=== PATIENT | male | born 1950 | race African-American/Black ===

== ENCOUNTER 2019-03-15 13:06 | Inpatient (IN) | payer OTHER ==
[~2019-03-15] VITALS: Ht 175.3 cm; Wt 60.3 kg
[~2019-03-15 13:06] MED LIST: AMLO10TA4 PO; ATOR-2 PO; CLOP75TA4 PO; GLYB5TAB7 PO; METF-416 PO; SITA100T11 PO
[2019-03-15] MEDS ORDERED: SODIUM CHLORIDE 0.9% 1,000 ML IV ONE ×2 (13:49→16:50)
[2019-03-15 14:31] LABS: BASOPHILS % 0.4 % (0.0-2.0); EOSINOPHILS % 0.6 % (0.0-5.0); HEMATOCRIT. 26.6 % (42.0-52.0); HEMOGLOBIN. 9.2 g/dL (14.0-18.0); LYMPHOCYTES % 17.2 % (20.0-50.0); MEAN CORPUSCULAR HEMOGLOBIN 34.7 pg (28.0-32.0); MEAN CORPUSCULAR VOLUME 100.1 fL (80.0-94.0); MONOCYTES % 7.8 % (2.0-8.0); PLATELET 251 x1000/uL (130-400); RED BLOOD CELL COUNT 2.66 mill/uL (4.7-6.1); RED CELL DISTRIBUTION WIDTH 14.6 % (11.6-14.6)
[2019-03-15 14:40] LABS: CHLORIDE 110 mEq/L (98-107)
[2019-03-15 14:43] LABS: INR 1.1; PARTIAL THROMBOPLASTIN TIME 27.7 sec (23.4-31.0); PROTHROMBIN TIME 10.9 sec (9.6-11.0)
[2019-03-15] MEDS ORDERED: HYDRALAZINE 20MG/ML VIAL IV ONE ×2 (16:00→18:30)
[2019-03-15] MEDS ORDERED: ASPIRIN 325MG EC TABLET PO ONE (18:30)
[2019-03-15 18:44] LABS: CLARITY URINE CLEAR (CLEAR); COLOR URINE YELLOW (YELLOW); KETONES URINE NEGATIVE (NEGATIVE); LEUKOCYTE ESTERASE URINE NEGATIVE (NEGATIVE); NITRITE URINE NEGATIVE (NEGATIVE); OCCULT BLOOD URINE NEGATIVE (NEGATIVE); PROTEIN URINE TRACE (NEGATIVE); SPECIFIC GRAVITY URINE 1.023 (1.005-1.030); UROBILINOGEN URINE 0.2 E.U./dL (0.2-1.0)
[2019-03-15] MEDS: MORPHINE SULFATE 4 MG/ML CPJ (NOT FOR IM USE) IV PRN (21:35)
[2019-03-15] MEDS ORDERED: ONDANSETRON HCL 4MG/2ML INJ IV PRN (22:00)
[2019-03-15] MEDS ORDERED: ACETAMINOPHEN 325MG TABLET PO PRN (22:00)
[2019-03-15] MEDS ORDERED: MAGNESIUM/ALUMINUM HYDROXIDE/SIMETHICONE 30ML UDC PO PRN (22:00)
[2019-03-15] MEDS ORDERED: DOCUSATE SODIUM 100MG CAPSULE PO PRN (22:00)
[2019-03-15] MEDS ORDERED: IOHEXOL-350 100 ML BOTTLE ONE (22:55)
[2019-03-15] MEDS: HYDROCODONE/ACETAMINOPHEN 5/325MG TABLET PO PRN (23:58)
[2019-03-16] MEDS: MORPHINE SULFATE 4 MG/ML CPJ (NOT FOR IM USE) IV PRN (01:22)
[2019-03-16 04:00] VITALS: BP 186/78
[2019-03-16 04:42] VITALS: BP 186/95
[2019-03-16] MEDS ORDERED: IRBE300T17 MT (05:05)
[2019-03-16] MEDS ORDERED: RANO500T3 MT (05:06)
[2019-03-16] MEDS ORDERED: IBUP-2030 MT (05:07)
[2019-03-16] MEDS: HYDROCODONE/ACETAMINOPHEN 5/325MG TABLET PO PRN (05:17)
[2019-03-16] MEDS: CLONIDINE 0.1MG TABLET PO PRN ×2 (05:18→17:20)
[2019-03-16] MEDS ORDERED: DEXTROSE 50% WATER 50ML SYRINGE IV PRN (05:30)
[2019-03-16] MEDS: BLOOD SUGAR DIAGNOSTIC STRIP TEST SCH ×4 (06:15→20:11)
[2019-03-16] MEDS: INSULIN LISPRO 100 UNITS/ML SUBCUT SCH ×4 (06:27→20:30)
[2019-03-16 08:00] VITALS: BP 161/75
[2019-03-16 09:37] LABS: BASOPHILS % 0.4 % (0.0-2.0); EOSINOPHILS % 0.1 % (0.0-5.0); HEMATOCRIT. 30.8 % (42.0-52.0); HEMOGLOBIN. 10.3 g/dL (14.0-18.0); LYMPHOCYTES % 8.4 % (20.0-50.0); MEAN CORPUSCULAR HEMOGLOBIN 33.9 pg (28.0-32.0); MEAN CORPUSCULAR VOLUME 101.5 fL (80.0-94.0); MEAN PLATELET VOLUME 7.9 fl (7.4-10.4); MONOCYTES % 6.2 % (2.0-8.0); NEUTROPHILS % 84.9 % (40.0-76.0); PLATELET 260 x1000/uL (130-400); RED BLOOD CELL COUNT 3.03 mill/uL (4.7-6.1)
[2019-03-16 10:31] LABS: CHLORIDE 112 mEq/L (98-107)
[2019-03-16 10:42] LABS: LDL CHOLESTEROL 105 mg/dL (5-100)
[2019-03-16 10:46] LABS: HDL CHOLESTEROL 67 mg/dL (40-59)
[2019-03-16 12:00] VITALS: BP 160/66
[2019-03-16] MEDS: DEXAMETHASONE 4MG/ML 1ML VIAL IV SCH ×2 (12:26→17:20)
[2019-03-16 13:00] LABS: T4 FREE 1.16 ng/dL (0.76-1.46)
[2019-03-16 16:00] VITALS: BP 170/81
[2019-03-16 20:00] VITALS: BP 130/71
[2019-03-16] MEDS ORDERED: POTASSIUM CHLORIDE 20MEQ TABLET SR PO SCH (20:00)
[2019-03-16] MEDS: ATORVASTATIN CALCIUM 40MG TABLET PO SCH (20:22)
[2019-03-16] MEDS ORDERED: DEXT 5%/LACTATED RINGERS 1,000 ML IV SCH (20:30)
[2019-03-16] MEDS ORDERED: ATORVASTATIN CALCIUM 40MG TABLET PO SCH (21:00)
[2019-03-17] VITALS: BP 150/66
[2019-03-17] MEDS: DEXAMETHASONE 4MG/ML 1ML VIAL IV SCH ×4 (00:12→17:44)
[2019-03-17 04:00] VITALS: BP 166/62
[2019-03-17] MEDS: CLONIDINE 0.1MG TABLET PO PRN (05:34)
[2019-03-17] MEDS: BLOOD SUGAR DIAGNOSTIC STRIP TEST SCH ×4 (06:23→20:15)
[2019-03-17] MEDS: INSULIN LISPRO 100 UNITS/ML SUBCUT SCH ×4 (06:27→20:49)
[2019-03-17] MEDS: HYDROCODONE/ACETAMINOPHEN 5/325MG TABLET PO PRN (06:27)
[2019-03-17 08:00] VITALS: BP 162/61
[2019-03-17 12:00] VITALS: BP 116/69
[2019-03-17] MEDS: ASPIRIN 81MG TABLET PO SCH (12:02)
[2019-03-17] MEDS: HYDRALAZINE HCL 25MG TABLET PO SCH ×2 (12:02→20:14)
[2019-03-17] MEDS: MORPHINE SULFATE 4 MG/ML CPJ (NOT FOR IM USE) IV PRN ×2 (12:30→20:15)
[2019-03-17] MEDS: SODIUM CHLORIDE 0.9% 1,000 ML IV SCH ×2 (12:31→21:07)
[2019-03-17 16:00] VITALS: BP 152/61
[2019-03-17 20:00] VITALS: BP 157/73
[2019-03-17] MEDS: ATORVASTATIN CALCIUM 40MG TABLET PO SCH (20:16)
[2019-03-18] VITALS: BP 156/66
[2019-03-18 00:35] LABS: CREATINE KINASE MB FRACTION 1.6 ng/mL (0.5-3.6)
[2019-03-18] MEDS: DEXAMETHASONE 4MG/ML 1ML VIAL IV SCH ×5 (00:57→19:46)
[2019-03-18 04:00] VITALS: BP 166/70
[2019-03-18] MEDS: BLOOD SUGAR DIAGNOSTIC STRIP TEST SCH ×2 (06:41→21:29)
[2019-03-18] MEDS: INSULIN LISPRO 100 UNITS/ML SUBCUT SCH ×4 (06:47→21:40)
[2019-03-18 08:00] VITALS: BP 162/65
[2019-03-18 08:58] LABS: CREATINE KINASE MB FRACTION 1.4 ng/mL (0.5-3.6)
[2019-03-18] MEDS: CLOPIDOGREL 75MG TABLET PO SCH (09:49)
[2019-03-18] MEDS: ASPIRIN 81MG TABLET PO SCH (09:49)
[2019-03-18] MEDS: HYDRALAZINE HCL 25MG TABLET PO SCH ×2 (10:13→21:32)
[2019-03-18] MEDS: MORPHINE SULFATE 4 MG/ML CPJ (NOT FOR IM USE) IV PRN ×2 (10:15→23:14)
[2019-03-18 12:00] VITALS: BP 163/65
[2019-03-18] MEDS: SODIUM CHLORIDE 0.9% 1,000 ML IV SCH (14:40)
[2019-03-18 16:00] VITALS: BP 154/59
[2019-03-18 20:00] VITALS: BP 151/60
[2019-03-18] MEDS: ATORVASTATIN CALCIUM 40MG TABLET PO SCH (21:29)
[2019-03-19] VITALS: BP 151/63
[2019-03-19] MEDS: SODIUM CHLORIDE 0.9% 1,000 ML IV SCH ×2 (00:59→17:26)
[2019-03-19] MEDS: DEXAMETHASONE 4MG/ML 1ML VIAL IV SCH ×6 (00:59→23:15)
[2019-03-19 04:00] VITALS: BP 163/71
[2019-03-19] MEDS: CLONIDINE 0.1MG TABLET PO PRN ×2 (05:14→13:58)
[2019-03-19] MEDS: BLOOD SUGAR DIAGNOSTIC STRIP TEST SCH ×4 (06:18→20:38)
[2019-03-19] MEDS: INSULIN LISPRO 100 UNITS/ML SUBCUT SCH ×4 (06:24→21:14)
[2019-03-19 06:44] LABS: CHLORIDE 112 mEq/L (98-107)
[2019-03-19 06:54] LABS: BASOPHILS % 0.1 % (0.0-2.0); HEMATOCRIT. 22.7 % (42.0-52.0); HEMOGLOBIN. 7.9 g/dL (14.0-18.0); LYMPHOCYTES % 12.4 % (20.0-50.0); MEAN CORPUSCULAR HEMOGLOBIN 34.8 pg (28.0-32.0); MEAN CORPUSCULAR VOLUME 100.5 fL (80.0-94.0); MEAN PLATELET VOLUME 8.7 fl (7.4-10.4); MONOCYTES % 7.5 % (2.0-8.0); PLATELET 196 x1000/uL (130-400); RED BLOOD CELL COUNT 2.26 mill/uL (4.7-6.1); RED CELL DISTRIBUTION WIDTH 14.2 % (11.6-14.6)
[2019-03-19 08:00] VITALS: BP 140/62
[2019-03-19] MEDS: ASPIRIN 81MG TABLET PO SCH (09:39)
[2019-03-19] MEDS: CLOPIDOGREL 75MG TABLET PO SCH (09:39)
[2019-03-19] MEDS: HYDRALAZINE HCL 25MG TABLET PO SCH ×3 (09:39→21:13)
[2019-03-19] MEDS: MORPHINE SULFATE 4 MG/ML CPJ (NOT FOR IM USE) IV PRN ×2 (10:57→17:54)
[2019-03-19 12:00] VITALS: BP 163/63
[2019-03-19 16:00] VITALS: BP 165/65
[2019-03-19 20:00] VITALS: BP 151/59
[2019-03-19] MEDS: ATORVASTATIN CALCIUM 40MG TABLET PO SCH (20:32)
[2019-03-20] VITALS: BP 134/53
[2019-03-20] MEDS: MORPHINE SULFATE 4 MG/ML CPJ (NOT FOR IM USE) IV PRN (02:46)
[2019-03-20] MEDS: SODIUM CHLORIDE 0.9% 1,000 ML IV SCH ×2 (03:25→05:38)
[2019-03-20 04:00] VITALS: BP 155/66
[2019-03-20] MEDS: HYDRALAZINE HCL 25MG TABLET PO SCH ×4 (05:31→21:31)
[2019-03-20] MEDS: DEXAMETHASONE 4MG/ML 1ML VIAL IV SCH ×3 (05:31→18:00)
[2019-03-20] MEDS: BLOOD SUGAR DIAGNOSTIC STRIP TEST SCH ×4 (05:52→21:32)
[2019-03-20] MEDS: INSULIN LISPRO 100 UNITS/ML SUBCUT SCH ×4 (05:57→21:31)
[2019-03-20 08:00] VITALS: BP 171/78
[2019-03-20] MEDS: ASPIRIN 81MG TABLET PO SCH (10:05)
[2019-03-20] MEDS: CLOPIDOGREL 75MG TABLET PO SCH (10:05)
[2019-03-20 12:00] VITALS: BP 161/72
[2019-03-20] MEDS: CLONIDINE 0.1MG TABLET PO PRN (12:32)
[2019-03-20 16:00] VITALS: BP 153/64
[2019-03-20 19:05] LABS: BASOPHILS % 0.2 % (0.0-2.0); HEMATOCRIT. 27.1 % (42.0-52.0); HEMOGLOBIN. 9.1 g/dL (14.0-18.0); LYMPHOCYTES % 8.2 % (20.0-50.0); MEAN CORPUSCULAR HEMOGLOBIN 33.9 pg (28.0-32.0); MEAN CORPUSCULAR VOLUME 101.2 fL (80.0-94.0); MEAN PLATELET VOLUME 8.7 fl (7.4-10.4); MONOCYTES % 6.6 % (2.0-8.0); PLATELET 211 x1000/uL (130-400); RED BLOOD CELL COUNT 2.67 mill/uL (4.7-6.1)
[2019-03-20 20:00] VITALS: BP 143/83
[2019-03-20] MEDS: ATORVASTATIN CALCIUM 40MG TABLET PO SCH (21:30)
[2019-03-20] MEDS: HYDROCODONE/ACETAMINOPHEN 5/325MG TABLET PO PRN (21:31)
[2019-03-21] VITALS: BP 161/62
[2019-03-21] MEDS: DEXAMETHASONE 4MG/ML 1ML VIAL IV SCH ×4 (00:01→17:31)
[2019-03-21 04:00] VITALS: BP 161/63
[2019-03-21] MEDS ORDERED: MORPHINE SULFATE 4 MG/ML CPJ (NOT FOR IM USE) IV PRN (04:00)
[2019-03-21] MEDS: SODIUM CHLORIDE 0.9% 1,000 ML IV SCH ×2 (06:21→18:43)
[2019-03-21] MEDS: BLOOD SUGAR DIAGNOSTIC STRIP TEST SCH ×4 (06:22→20:06)
[2019-03-21] MEDS: HYDRALAZINE HCL 25MG TABLET PO SCH ×2 (06:22→13:44)
[2019-03-21] MEDS: INSULIN LISPRO 100 UNITS/ML SUBCUT SCH ×4 (06:43→20:21)
[2019-03-21 08:00] VITALS: BP 154/52
[2019-03-21] MEDS: CLOPIDOGREL 75MG TABLET PO SCH (08:51)
[2019-03-21] MEDS: ASPIRIN 81MG TABLET PO SCH (08:51)
[2019-03-21 12:00] VITALS: BP 151/57
[2019-03-21 16:00] VITALS: BP 139/51
[2019-03-21 20:00] VITALS: BP 145/54
[2019-03-21] MEDS: ATORVASTATIN CALCIUM 40MG TABLET PO SCH (20:15)
[2019-03-21] MEDS: HYDROCODONE/ACETAMINOPHEN 5/325MG TABLET PO PRN (20:20)
[2019-03-21] MEDS ORDERED: FAMOTIDINE 20MG TABLET PO SCH (21:00)
[2019-03-21] MEDS: FAMOTIDINE 20MG TABLET PO SCH (21:00)
[2019-03-22] VITALS: BP 157/58
[2019-03-22] MEDS: HYDRALAZINE HCL 25MG TABLET PO SCH ×4 (00:16→23:03)
[2019-03-22] MEDS: HYDROCODONE/ACETAMINOPHEN 5/325MG TABLET PO PRN ×3 (00:17→20:29)
[2019-03-22] MEDS: DEXAMETHASONE 4MG/ML 1ML VIAL IV SCH ×5 (00:19→23:49)
[2019-03-22 04:00] VITALS: BP 130/91
[2019-03-22] MEDS: BLOOD SUGAR DIAGNOSTIC STRIP TEST SCH ×4 (06:26→20:41)
[2019-03-22] MEDS: INSULIN LISPRO 100 UNITS/ML SUBCUT SCH ×4 (06:50→20:51)
[2019-03-22 08:00] VITALS: BP 121/56
[2019-03-22] MEDS: CLOPIDOGREL 75MG TABLET PO SCH (09:40)
[2019-03-22] MEDS: FAMOTIDINE 20MG TABLET PO SCH (09:41)
[2019-03-22] MEDS: ASPIRIN 81MG TABLET PO SCH (09:41)
[2019-03-22 12:00] VITALS: BP 181/76
[2019-03-22] MEDS: CLONIDINE 0.1MG TABLET PO PRN (13:09)
[2019-03-22 16:00] VITALS: BP 126/50
[2019-03-22 20:00] VITALS: BP 140/53
[2019-03-22] MEDS: ATORVASTATIN CALCIUM 40MG TABLET PO SCH (20:28)
[2019-03-23] VITALS (8 sets, daily range): BP systolic 104–168; BP diastolic 48–62
[2019-03-23] MEDS: DEXAMETHASONE 4MG/ML 1ML VIAL IV SCH (06:00)
[2019-03-23] MEDS: BLOOD SUGAR DIAGNOSTIC STRIP TEST SCH ×4 (06:53→20:16)
[2019-03-23] MEDS: HYDRALAZINE HCL 25MG TABLET PO SCH ×3 (06:54→21:17)
[2019-03-23] MEDS: INSULIN LISPRO 100 UNITS/ML SUBCUT SCH ×4 (06:57→20:58)
[2019-03-23] MEDS: FAMOTIDINE 20MG TABLET PO SCH (08:48)
[2019-03-23] MEDS: ASPIRIN 81MG TABLET PO SCH (08:48)
[2019-03-23] MEDS: CLOPIDOGREL 75MG TABLET PO SCH (08:48)
[2019-03-23] MEDS: HYDROCODONE/ACETAMINOPHEN 5/325MG TABLET PO PRN ×2 (12:19→23:35)
[2019-03-23] MEDS: DEXAMETHASONE 4MG TABLET PO SCH ×3 (12:38→23:29)
[2019-03-23] MEDS: CLONIDINE 0.1MG TABLET PO PRN (12:38)
[2019-03-23] MEDS: ATORVASTATIN CALCIUM 40MG TABLET PO SCH (20:52)
[2019-03-24] VITALS: BP 128/57
[2019-03-24 04:00] VITALS: BP 179/80
[2019-03-24 04:51] VITALS: BP 165/75
[2019-03-24] MEDS: DEXAMETHASONE 4MG TABLET PO SCH ×3 (05:13→17:18)
[2019-03-24] MEDS: HYDRALAZINE HCL 25MG TABLET PO SCH ×2 (05:13→13:51)
[2019-03-24] MEDS: BLOOD SUGAR DIAGNOSTIC STRIP TEST SCH ×4 (05:57→19:59)
[2019-03-24] MEDS: INSULIN LISPRO 100 UNITS/ML SUBCUT SCH ×4 (06:22→21:33)
[2019-03-24 06:35] VITALS: BP 158/67
[2019-03-24] MEDS: HYDROCODONE/ACETAMINOPHEN 5/325MG TABLET PO PRN (09:49)
[2019-03-24] MEDS: FAMOTIDINE 20MG TABLET PO SCH (09:50)
[2019-03-24] MEDS: CLOPIDOGREL 75MG TABLET PO SCH (09:50)
[2019-03-24] MEDS: ASPIRIN 81MG TABLET PO SCH (09:50)
[2019-03-24 16:00] VITALS: BP 130/60
[2019-03-24 20:00] VITALS: BP 141/46
[2019-03-24] MEDS ORDERED: DIPHENHYDRAMINE 25MG CAPSULE PO PRN (21:15)
[2019-03-24] MEDS ORDERED: DIPHENHYDRAMINE 50MG/ML VIAL IV PRN (21:15)
[2019-03-24] MEDS: ATORVASTATIN CALCIUM 40MG TABLET PO SCH (21:32)
[2019-03-25] VITALS (8 sets, daily range): BP systolic 131–182; BP diastolic 52–67
[2019-03-25] MEDS: HYDRALAZINE HCL 25MG TABLET PO SCH ×4 (01:09→21:43)
[2019-03-25] MEDS: DEXAMETHASONE 4MG TABLET PO SCH ×5 (01:09→23:41)
[2019-03-25] MEDS: BLOOD SUGAR DIAGNOSTIC STRIP TEST SCH ×4 (06:07→20:17)
[2019-03-25] MEDS: INSULIN LISPRO 100 UNITS/ML SUBCUT SCH ×4 (06:50→21:22)
[2019-03-25] MEDS: CLOPIDOGREL 75MG TABLET PO SCH (09:43)
[2019-03-25] MEDS: ASPIRIN 81MG TABLET PO SCH (09:45)
[2019-03-25] MEDS: CLONIDINE 0.1MG TABLET PO PRN (09:45)
[2019-03-25] MEDS: FAMOTIDINE 20MG TABLET PO SCH (09:45)
[2019-03-25] MEDS: AMLODIPINE 5MG TABLET PO SCH ×2 (11:24→20:14)
[2019-03-25] MEDS: ATORVASTATIN CALCIUM 40MG TABLET PO SCH (20:14)
[2019-03-26] VITALS: BP 137/55
[2019-03-26 04:00] VITALS: BP 161/62
[2019-03-26] MEDS: CLONIDINE 0.1MG TABLET PO PRN (04:07)
[2019-03-26] MEDS: HYDRALAZINE HCL 25MG TABLET PO SCH ×3 (05:51→21:13)
[2019-03-26] MEDS: DEXAMETHASONE 4MG TABLET PO SCH ×3 (05:51→17:11)
[2019-03-26] MEDS: BLOOD SUGAR DIAGNOSTIC STRIP TEST SCH ×4 (07:36→20:11)
[2019-03-26 08:00] VITALS: BP 142/46
[2019-03-26] MEDS: FAMOTIDINE 20MG TABLET PO SCH (08:38)
[2019-03-26] MEDS: ASPIRIN 81MG TABLET PO SCH (08:38)
[2019-03-26] MEDS: CLOPIDOGREL 75MG TABLET PO SCH (08:38)
[2019-03-26] MEDS: AMLODIPINE 5MG TABLET PO SCH ×2 (08:39→20:05)
[2019-03-26] MEDS: INSULIN LISPRO 100 UNITS/ML SUBCUT SCH ×4 (08:42→21:15)
[2019-03-26 12:00] VITALS: BP 137/57
[2019-03-26] MEDS: HYDROCODONE/ACETAMINOPHEN 5/325MG TABLET PO PRN (13:16)
[2019-03-26] MEDS ORDERED: INSULIN GLARGINE UD 100 UNITS/ML SYR SUBCUT SCH (14:00)
[2019-03-26 16:00] VITALS: BP 104/62
[2019-03-26 20:00] VITALS: BP 126/56
[2019-03-26] MEDS: ATORVASTATIN CALCIUM 40MG TABLET PO SCH (20:05)
[2019-03-27] VITALS: BP 145/62
[2019-03-27] MEDS: DEXAMETHASONE 4MG TABLET PO SCH ×4 (00:05→17:53)
[2019-03-27 04:00] VITALS: BP 165/72
[2019-03-27] MEDS: HYDRALAZINE HCL 25MG TABLET PO SCH ×2 (05:30→13:47)
[2019-03-27] MEDS: BLOOD SUGAR DIAGNOSTIC STRIP TEST SCH ×3 (07:36→17:20)
[2019-03-27 08:00] VITALS: BP 152/48
[2019-03-27] MEDS: ASPIRIN 81MG TABLET PO SCH (09:07)
[2019-03-27] MEDS: AMLODIPINE 5MG TABLET PO SCH (09:07)
[2019-03-27] MEDS: CLOPIDOGREL 75MG TABLET PO SCH (09:07)
[2019-03-27] MEDS: FAMOTIDINE 20MG TABLET PO SCH (09:07)
[2019-03-27] MEDS: INSULIN LISPRO 100 UNITS/ML SUBCUT SCH ×3 (09:13→18:54)
[2019-03-27] MEDS ORDERED: INSULIN GLARGINE UD 100 UNITS/ML SYR SUBCUT SCH (10:00)
[2019-03-27] MEDS ORDERED: HYDROCODONE/ACETAMINOPHEN 5/325MG TABLET PO PRN (10:15)
[2019-03-27 12:00] VITALS: BP 157/56
[2019-03-27 12:24] LABS: HEMATOCRIT. 29.8 % (42.0-52.0); HEMOGLOBIN. 10.2 g/dL (14.0-18.0); MEAN CORPUSCULAR HEMOGLOBIN 35.1 pg (28.0-32.0); MEAN CORPUSCULAR VOLUME 102.1 fL (80.0-94.0); MEAN PLATELET VOLUME 8.1 fl (7.4-10.4); PLATELET 318 x1000/uL (130-400); RED BLOOD CELL COUNT 2.91 mill/uL (4.7-6.1); RED CELL DISTRIBUTION WIDTH 14.7 % (11.6-14.6)
[2019-03-27 14:30] LABS: PLATELET ESTIMATE NORMAL
[2019-03-27 15:55] VITALS: BP 138/53
[2019-03-27 17:10] VITALS: BP 138/53
[2019-03-27] MEDS ORDERED: SODIUM POLYSTYRENE SULFONATE 15 G/60 ML BOT PO NR (18:00)
== END 2019-03-27 19:05 | DRG 280 ==
LOC: ER 13:06 → 5WST 18:25 → ENRESERV 03-16 03:02 → 6EST 03-25 11:41
PROVIDERS: ADMIT Hospitalist; ATTEND Hospitalist
DX: I21.3 ST elevation (STEMI) myocardial infarction of unspecified site (principal); G93.41 Metabolic encephalopathy; G82.20 Paraplegia, unspecified; C79.49 Secondary malignant neoplasm of other parts of nervous system; I45.2 Bifascicular block; G95.20 Unspecified cord compression; E46 Unspecified protein-calorie malnutrition; Z68.1 Body mass index [BMI] 19.9 or less, adult; I24.9 Acute ischemic heart disease, unspecified; D64.9 Anemia, unspecified; E04.2 Nontoxic multinodular goiter; E11.22 Type 2 diabetes mellitus with diabetic chronic kidney disease; E78.5 Hyperlipidemia, unspecified; Z96.649 Presence of unspecified artificial hip joint; I13.10 Hypertensive heart and chronic kidney disease without heart failure, with stage 1 through stage 4 chronic kidney disease, or unspecified chronic kidney disease; M48.04 Spinal stenosis, thoracic region; L89.159 Pressure ulcer of sacral region, unspecified stage; R32 Unspecified urinary incontinence; I25.10 Atherosclerotic heart disease of native coronary artery without angina pectoris; N18.9 Chronic kidney disease, unspecified; Z85.038 Personal history of other malignant neoplasm of large intestine; Z85.46 Personal history of malignant neoplasm of prostate; Z95.1 Presence of aortocoronary bypass graft; Z88.2 Allergy status to sulfonamides; Z79.84 Long term (current) use of oral hypoglycemic drugs; Z79.899 Other long term (current) drug therapy
CPT/HCPCS: 36415; 71045; 71275; 72141; 72146; 72148; 74174; 80048; 80053; 80061; 81003; 82140; 82550; 82553; 82962; 83735; 83880; 84134; 84439; 84443; 84484; 85025; 93005; 93306; 93970; 97162; 97530; 99291; A6261; C1893; J0360; J1100; J1815; J2270; J7030; J8540; Q0163; Q9967; A4315

== ENCOUNTER 2019-03-31 10:36 | Inpatient (IN) | payer OTHER ==
[~2019-03-31] VITALS: Ht 182.9 cm; Wt 54.4 kg
[~2019-03-31 10:36] MED LIST changes: -AMLO10TA4 PO; -GLYB5TAB7 PO; +IBUP-2030 MT; +IRBE300T17 MT; -METF-416 PO; +RANO500T3 MT
[2019-03-31 12:40] LABS: HEMATOCRIT. 26.1 % (42.0-52.0); HEMOGLOBIN. 8.7 g/dL (14.0-18.0); MEAN CORPUSCULAR HEMOGLOBIN 34.4 pg (28.0-32.0); MEAN CORPUSCULAR VOLUME 102.5 fL (80.0-94.0); PLATELET 174 x1000/uL (130-400); RED BLOOD CELL COUNT 2.54 mill/uL (4.7-6.1); RED CELL DISTRIBUTION WIDTH 16.1 % (11.6-14.6)
[2019-03-31 12:43] LABS: CHLORIDE 116 mEq/L (98-107)
[2019-03-31] MEDS ORDERED: PIPERACILLIN/TAZ 2.25G PREMIX 50 ML IV ONE (13:45)
[2019-03-31] MEDS: ASPIRIN 325MG EC TABLET PO ONE ×2 (13:45→16:46)
[2019-03-31] MEDS: VANCOMYCIN 1 G PREMIX 200 ML IV SCH ×2 (14:00→16:46)
[2019-03-31 14:04] LABS: NUCLEATED RED BLOOD CELLS 1 /100 WBC
[2019-03-31 14:05] LABS: PLATELET ESTIMATE NORMAL
[2019-03-31] MEDS ORDERED: GUAIFENESIN 200MG/10ML SUGAR FREE UDC PO PRN (15:45)
[2019-03-31] MEDS ORDERED: DOCUSATE SODIUM 100MG CAPSULE PO PRN (15:45)
[2019-03-31] MEDS ORDERED: IPRATROPIUM/ALBUTEROL 0.5-3(2.5)MG/3ML NEB NEB PRN (15:45)
[2019-03-31] MEDS ORDERED: ZOLPIDEM TARTRATE 5MG TABLET PO PRN (15:45)
[2019-03-31] MEDS ORDERED: ACETAMINOPHEN 325MG TABLET PO PRN (15:45)
[2019-03-31] MEDS ORDERED: MAGNESIUM/ALUMINUM HYDROXIDE/SIMETHICONE 30ML UDC PO PRN (15:45)
[2019-03-31] MEDS ORDERED: NITROGLYCERIN 0.4MG TABLET SL SL PRN (15:45)
[2019-03-31] MEDS ORDERED: ONDANSETRON HCL 4MG/2ML INJ IV PRN (15:45)
[2019-03-31] MEDS ORDERED: DEXTROSE 50% WATER 50ML SYRINGE IV PRN (15:45)
[2019-03-31 17:45] LABS: VITAMIN B12 SERUM 1205 pg/mL (211-911)
[2019-03-31] MEDS: SODIUM CHLORIDE 0.45% 1,000 ML IV SCH (17:50)
[2019-03-31] MEDS: ENOXAPARIN 30MG/0.3ML SYR SUBCUT SCH (17:50)
[2019-03-31] MEDS: BLOOD SUGAR DIAGNOSTIC STRIP TEST SCH (17:50)
[2019-03-31 17:55] LABS: FOLIC ACID (FOLATE) SERUM > 20.00 ng/mL (>5.38)
[2019-03-31] MEDS ORDERED: DEXAMETHASONE 1MG TABLET PO NR (19:00)
[2019-03-31] MEDS: INSULIN LISPRO 100 UNITS/ML SUBCUT SCH (19:06)
[2019-03-31] MEDS ORDERED: FAMOTIDINE 20MG TABLET PO SCH (21:00)
[2019-03-31 22:00] VITALS: BP 152/53
[2019-03-31 23:00] VITALS: BP 152/53
[2019-04-01] VITALS: BP 147/52
[2019-04-01] MEDS: BLOOD SUGAR DIAGNOSTIC STRIP TEST SCH ×5 (00:47→22:08)
[2019-04-01] MEDS: ATORVASTATIN CALCIUM 40MG TABLET PO SCH ×2 (00:47→22:08)
[2019-04-01] MEDS: DEXAMETHASONE 1MG TABLET PO SCH ×4 (00:48→17:43)
[2019-04-01] MEDS: INSULIN LISPRO 100 UNITS/ML SUBCUT SCH ×5 (01:02→22:17)
[2019-04-01 03:55] LABS: CREATINE KINASE 559 IU/L (39-308); CREATINE KINASE MB FRACTION < 1.0 ng/mL (0.5-3.6)
[2019-04-01 04:00] VITALS: BP 128/49
[2019-04-01] MEDS: SODIUM CHLORIDE 0.45% 1,000 ML IV SCH ×3 (07:01→22:09)
[2019-04-01 08:00] VITALS: BP 126/82
[2019-04-01] MEDS: CLOPIDOGREL 75MG TABLET PO SCH (10:15)
[2019-04-01] MEDS: ASPIRIN 81MG EC TABLET PO SCH (10:15)
[2019-04-01] MEDS: FAMOTIDINE 20MG TABLET PO SCH (10:15)
[2019-04-01] MEDS: FOLIC ACID/VITAMIN B COMP W-C TABLET PO SCH (10:16)
[2019-04-01] MEDS: CEFTRIAXONE 1 G PREMIX 50 ML IV SCH (10:19)
[2019-04-01] MEDS ORDERED: LEVOFLOXACIN 500MG PREMIX 100 ML IV SCH (11:00)
[2019-04-01 11:16] LABS: HEMATOCRIT. 23.1 % (42.0-52.0); HEMOGLOBIN. 7.7 g/dL (14.0-18.0); MEAN CORPUSCULAR HEMOGLOBIN 33.9 pg (28.0-32.0); MEAN PLATELET VOLUME 9.6 fl (7.4-10.4); PLATELET 141 x1000/uL (130-400); RED BLOOD CELL COUNT 2.26 mill/uL (4.7-6.1); RED CELL DISTRIBUTION WIDTH 16.2 % (11.6-14.6)
[2019-04-01 11:20] LABS: PROTHROMBIN TIME 11.3 sec (9.6-11.0)
[2019-04-01 11:24] LABS: CHLORIDE 118 mEq/L (98-107)
[2019-04-01 11:34] LABS: PHOSPHORUS 5.2 mg/dL (2.5-4.9)
[2019-04-01 11:36] LABS: CREATINE KINASE 395 IU/L (39-308)
[2019-04-01 11:40] LABS: CREATINE KINASE MB FRACTION < 1.0 ng/mL (0.5-3.6)
[2019-04-01 12:00] VITALS: BP 118/78
[2019-04-01 16:00] VITALS: BP 136/60
[2019-04-01] MEDS: ENOXAPARIN 30MG/0.3ML SYR SUBCUT SCH (17:42)
[2019-04-01] MEDS: TRAMADOL 50MG TABLET PO PRN (18:37)
[2019-04-01 19:13] LABS: CLARITY URINE CLOUDY (CLEAR); COLOR URINE YELLOW (YELLOW); KETONES URINE NEGATIVE (NEGATIVE); LEUKOCYTE ESTERASE URINE 2+ (NEGATIVE); NITRITE URINE NEGATIVE (NEGATIVE); OCCULT BLOOD URINE 2+ (NEGATIVE); PROTEIN URINE 1+ (NEGATIVE); SPECIFIC GRAVITY URINE 1.014 (1.005-1.030); UROBILINOGEN URINE 0.2 E.U./dL (0.2-1.0)
[2019-04-01 20:00] VITALS: BP 130/65
[2019-04-01 23:09] LABS: PLATELET ESTIMATE NORMAL
[2019-04-02] VITALS (8 sets, daily range): BP systolic 120–165; BP diastolic 55–72
[2019-04-02] MEDS: DEXAMETHASONE 1MG TABLET PO SCH ×3 (00:23→17:22)
[2019-04-02 06:35] LABS: PHOSPHORUS 4.8 mg/dL (2.5-4.9)
[2019-04-02 06:36] LABS: HEMATOCRIT. 24.9 % (42.0-52.0); HEMOGLOBIN. 8.3 g/dL (14.0-18.0); MEAN CORPUSCULAR HEMOGLOBIN 34.2 pg (28.0-32.0); MEAN CORPUSCULAR VOLUME 102.5 fL (80.0-94.0); MEAN PLATELET VOLUME 9.6 fl (7.4-10.4); PLATELET 136 x1000/uL (130-400); RED BLOOD CELL COUNT 2.43 mill/uL (4.7-6.1); RED CELL DISTRIBUTION WIDTH 16.3 % (11.6-14.6)
[2019-04-02] MEDS: BLOOD SUGAR DIAGNOSTIC STRIP TEST SCH ×4 (06:46→21:54)
[2019-04-02] MEDS: ASPIRIN 81MG EC TABLET PO SCH (08:34)
[2019-04-02] MEDS: FOLIC ACID/VITAMIN B COMP W-C TABLET PO SCH (08:34)
[2019-04-02] MEDS: CLOPIDOGREL 75MG TABLET PO SCH (08:34)
[2019-04-02] MEDS: FAMOTIDINE 20MG TABLET PO SCH (08:34)
[2019-04-02] MEDS: INSULIN LISPRO 100 UNITS/ML SUBCUT SCH ×6 (08:35→22:03)
[2019-04-02] MEDS: SODIUM CHLORIDE 0.45% 1,000 ML IV SCH ×2 (08:40→22:04)
[2019-04-02] MEDS: TRAMADOL 50MG TABLET PO PRN (09:25)
[2019-04-02] MEDS: CEFTRIAXONE 1 G PREMIX 50 ML IV SCH (09:27)
[2019-04-02] MEDS: CLONIDINE 0.1MG TABLET PO PRN (09:28)
[2019-04-02 11:36] LABS: BG BASE EXCESS -8.3 mmol/L (-2.0-2.0); BG CARBOXYHEMOGLOBIN 0.1 % (0.5-1.5); BG DEOXYHEMOGLOBIN 1.6 % (0.0-5.0); BG HCO3 ACT 16.5 mmol/L (22.0-26.0); BG OXYGEN SATURATION 98.4 % (92.0-98.5); BG OXYHEMOGLOBIN 98.3 % (94.0-97.0); BG PCO2 30.9 mmHg (35.0-45.0); BG PH 7.346 (7.350-7.450); BG PO2 135.5 mmHg (75.0-100.0); BG SAMPLE SITE RIGHT BRACHIAL; BG TOTAL HEMOGLOBIN 8.2 g/dL (12.0-18.0); BG VENT MODE NASAL CANNULA
[2019-04-02] MEDS ORDERED: SODIUM POLYSTYRENE SULFONATE 15 G/60 ML BOT PO NR (12:00)
[2019-04-02] MEDS: CITRIC ACID/SODIUM CITRATE SOLN 30ML UDC PO SCH ×2 (12:02→17:21)
[2019-04-02] MEDS: ENOXAPARIN 30MG/0.3ML SYR SUBCUT SCH (17:25)
[2019-04-02 20:33] LABS: PLATELET ESTIMATE NORMAL
[2019-04-02] MEDS: ATORVASTATIN CALCIUM 40MG TABLET PO SCH (21:53)
[2019-04-02] MEDS: INSULIN GLARGINE UD 100 UNITS/ML SYR SUBCUT SCH (22:03)
[2019-04-02] MEDS: MORPHINE SULFATE 2 MG/ML CPJ (NOT FOR IM USE) IV PRN (22:09)
[2019-04-03] VITALS: BP 157/62
[2019-04-03 04:00] VITALS: BP 140/80
[2019-04-03] MEDS: SODIUM CHLORIDE 0.45% 1,000 ML IV SCH ×3 (05:13→21:04)
[2019-04-03] MEDS: DEXAMETHASONE 1MG TABLET PO SCH (05:13)
[2019-04-03] MEDS: BLOOD SUGAR DIAGNOSTIC STRIP TEST SCH ×4 (06:12→20:48)
[2019-04-03 08:00] VITALS: BP 170/69
[2019-04-03] MEDS: FOLIC ACID/VITAMIN B COMP W-C TABLET PO SCH (08:28)
[2019-04-03] MEDS: CITRIC ACID/SODIUM CITRATE SOLN 30ML UDC PO SCH (08:28)
[2019-04-03] MEDS: CLOPIDOGREL 75MG TABLET PO SCH (08:28)
[2019-04-03] MEDS: FAMOTIDINE 20MG TABLET PO SCH (08:28)
[2019-04-03] MEDS: ASPIRIN 81MG EC TABLET PO SCH (08:28)
[2019-04-03] MEDS: INSULIN LISPRO 100 UNITS/ML SUBCUT SCH ×7 (08:29→21:03)
[2019-04-03] MEDS: CEFTRIAXONE 1 G PREMIX 50 ML IV SCH (09:21)
[2019-04-03] MEDS: CLONIDINE 0.1MG TABLET PO PRN (09:22)
[2019-04-03] MEDS ORDERED: LEVOFLOXACIN 250MG PREMIX 50 ML IV SCH (11:00)
[2019-04-03 12:00] VITALS: BP 157/68
[2019-04-03] MEDS: CITRIC ACID/SODIUM CITRATE SOLN 15ML UDC PO SCH ×2 (12:53→16:47)
[2019-04-03 16:00] VITALS: BP 148/75
[2019-04-03] MEDS: ENOXAPARIN 30MG/0.3ML SYR SUBCUT SCH (16:48)
[2019-04-03 20:00] VITALS: BP 131/69
[2019-04-03] MEDS: SODIUM POLYSTYRENE SULFONATE 15 G/60 ML BOT PO NR ×2 (20:43→21:18)
[2019-04-03] MEDS: ATORVASTATIN CALCIUM 40MG TABLET PO SCH (20:57)
[2019-04-03] MEDS: MORPHINE SULFATE 2 MG/ML CPJ (NOT FOR IM USE) IV PRN (21:05)
[2019-04-03] MEDS: INSULIN GLARGINE UD 100 UNITS/ML SYR SUBCUT SCH (23:13)
[2019-04-04] VITALS (8 sets, daily range): BP systolic 138–165; BP diastolic 64–79
[2019-04-04] MEDS: BLOOD SUGAR DIAGNOSTIC STRIP TEST SCH ×4 (06:28→20:55)
[2019-04-04] MEDS: ASPIRIN 81MG EC TABLET PO SCH (08:20)
[2019-04-04] MEDS: CLOPIDOGREL 75MG TABLET PO SCH (08:21)
[2019-04-04] MEDS: FOLIC ACID/VITAMIN B COMP W-C TABLET PO SCH (08:21)
[2019-04-04] MEDS: CITRIC ACID/SODIUM CITRATE SOLN 15ML UDC PO SCH ×3 (08:21→17:45)
[2019-04-04] MEDS: FAMOTIDINE 20MG TABLET PO SCH (08:21)
[2019-04-04] MEDS: INSULIN LISPRO 100 UNITS/ML SUBCUT SCH ×7 (08:23→20:55)
[2019-04-04] MEDS ORDERED: DEXAMETHASONE 1MG TABLET PO SCH (09:00)
[2019-04-04] MEDS: CEFTRIAXONE 1 G PREMIX 50 ML IV SCH (10:00)
[2019-04-04 11:45] LABS: BASOPHILS % 0.3 % (0.0-2.0); EOSINOPHILS % 0.3 % (0.0-5.0); HEMATOCRIT. 25.4 % (42.0-52.0); HEMOGLOBIN. 8.6 g/dL (14.0-18.0); LYMPHOCYTES % 7.4 % (20.0-50.0); MEAN CORPUSCULAR HEMOGLOBIN 34.7 pg (28.0-32.0); MEAN CORPUSCULAR VOLUME 102.9 fL (80.0-94.0); MEAN PLATELET VOLUME 9.6 fl (7.4-10.4); MONOCYTES % 7.3 % (2.0-8.0); NEUTROPHILS % 84.7 % (40.0-76.0); PLATELET 150 x1000/uL (130-400); RED BLOOD CELL COUNT 2.47 mill/uL (4.7-6.1); RED CELL DISTRIBUTION WIDTH 15.6 % (11.6-14.6)
[2019-04-04 12:25] LABS: CHLORIDE 115 mEq/L (98-107)
[2019-04-04 12:31] LABS: PHOSPHORUS 3.6 mg/dL (2.5-4.9)
[2019-04-04] MEDS: ENOXAPARIN 30MG/0.3ML SYR SUBCUT SCH (17:45)
[2019-04-04] MEDS: SODIUM CHLORIDE 0.45% 1,000 ML IV SCH (20:54)
[2019-04-04] MEDS: CLONIDINE 0.1MG TABLET PO PRN (20:55)
[2019-04-04] MEDS: ATORVASTATIN CALCIUM 40MG TABLET PO SCH (20:55)
[2019-04-04] MEDS: MORPHINE SULFATE 2 MG/ML CPJ (NOT FOR IM USE) IV PRN (20:57)
== END 2019-04-04 21:27 | DRG 682 ==
LOC: ER 10:36 → SUPCPDRO 15:39 → 7WST 15:39 → EDBEDREQ 15:43 → ENRESERV 21:02
PROVIDERS: ADMIT Internal Medicine; ATTEND Internal Medicine
DX: N17.0 Acute kidney failure with tubular necrosis (principal); G92 Toxic encephalopathy; E43 Unspecified severe protein-calorie malnutrition; C79.51 Secondary malignant neoplasm of bone; Z68.1 Body mass index [BMI] 19.9 or less, adult; G82.20 Paraplegia, unspecified; I25.10 Atherosclerotic heart disease of native coronary artery without angina pectoris; N18.2 Chronic kidney disease, stage 2 (mild); R74.0 Nonspecific elevation of levels of transaminase and lactic acid dehydrogenase [LDH]; I12.9 Hypertensive chronic kidney disease with stage 1 through stage 4 chronic kidney disease, or unspecified chronic kidney disease; E11.65 Type 2 diabetes mellitus with hyperglycemia; D64.9 Anemia, unspecified; E78.00 Pure hypercholesterolemia, unspecified; F03.90 Unspecified dementia, unspecified severity, without behavioral disturbance, psychotic disturbance, mood disturbance, and anxiety; Z96.649 Presence of unspecified artificial hip joint; E11.22 Type 2 diabetes mellitus with diabetic chronic kidney disease; I25.2 Old myocardial infarction; Z79.4 Long term (current) use of insulin; Z85.46 Personal history of malignant neoplasm of prostate; Z95.1 Presence of aortocoronary bypass graft; Z82.49 Family history of ischemic heart disease and other diseases of the circulatory system; Z88.2 Allergy status to sulfonamides; Z79.899 Other long term (current) drug therapy; Z83.3 Family history of diabetes mellitus
CPT/HCPCS: 36415; 36600; 71045; 76770; 78306; 80048; 80053; 80061; 81003; 82375; 82550; 82553; 82607; 82746; 82805; 82962; 83036; 83540; 83550; 83735; 83880; 84100; 84134; 84153; 84484; 85025; 87077; 87186; 93005; 93970; 96365; 99285; A9503; J0696; J1650; J1815; J1956; J2270; J2543; J3370; J8540; G0103